=== PATIENT | male | born 1970 | race Caucasian/White ===

== ENCOUNTER 2017-02-24 11:31 | Emergency (ER) | payer OTHER ==
[~2017-02-24] VITALS: Ht 182.9 cm; Wt 125.0 kg
[2017-02-24] MEDS ORDERED: MOTRIN600 MG PO (13:19)
[2017-02-24] MEDS ORDERED: NORCO 5/3251 TABLET PO (13:19)
[2017-02-24 13:59] VITALS: BP 131/75
== END 2017-02-24 14:01 | disposition home or self-care (01) ==
LOC: EME 11:31
DX: S86.812A Strain of other muscle(s) and tendon(s) at lower leg level, left leg, initial encounter (principal); Y93.54 Activity, bowling
CPT/HCPCS: 73564; 99281; 99283